=== PATIENT | female | born 1955 | race Caucasian/White ===

== ENCOUNTER → 2017-08-15 | Outpatient (CLI) | payer BC, MEDICARE ==
--- NOTE | 2017-08-15 11:30 | USB ---
Reason for exam: clinical finding. History: Patient has history of endometrial cancer at age 62 and has history of breast cancer at age 55. Family history of breast cancer in cousin at age 36 and breast cancer in paternal aunt. Lumpectomy of the left breast. Indicated problem(s): skin thickening or retraction and lump or thickening in the left breast. Physical Findings: Nurse did not find any significant physical abnormalities on exam. US Breast LT Left breast ultrasound includes all four quadrants, the retroareolar region and axilla. Finding demonstrates skin thickening, shadowing from scar. Significant exam limitations due to attenuating tissue. These results were verbally communicated with the patient and result sheet given to the patient on 08/15/17. ASSESSMENT: Probably benign, BI-RAD 3 RECOMMENDATION: Clinical management of the left breast. Manage patient on a clinical basis.
== END | disposition home or self-care (01) ==
LOC: RADUSWWP 10:03
PROVIDERS: ATTEND Obstetrics & Gynecology Obstetrics
DX: Z08 Encounter for follow-up examination after completed treatment for malignant neoplasm (principal); Z85.3 Personal history of malignant neoplasm of breast

== ENCOUNTER → 2018-05-20 | Outpatient (CLI) | payer MEDICARE ==
--- NOTE | 2018-05-22 10:27 | MM ---
Reason for exam: screening (asymptomatic). Last mammogram was performed 1 year and 2 months ago. History: Patient has history of endometrial cancer at age 62 and has history of breast cancer at age 55. Family history of breast cancer in cousin at age 36 and breast cancer in paternal aunt. Lumpectomy of the left breast. Physical Findings: A clinical breast exam by your physician is recommended on an annual basis and results should be correlated with mammographic findings. MG 3D Screening Mammo W/Cad Bilateral CC and MLO view(s) were taken. Prior study comparison: March 13, 2017, mammogram, performed at [facility]. March 06, 2017, mammogram, performed at [facility]. The breast tissue is heterogeneously dense. This may lower the sensitivity of mammography. Post surgical changes in the left breast, stable. No significant changes when compared with prior studies. ASSESSMENT: Benign, BI-RAD 2 RECOMMENDATION: Routine screening mammogram of both breasts.
== END | disposition home or self-care (01) ==
LOC: RADMAMWWP 07:25
PROVIDERS: ATTEND Internal Medicine
DX: Z12.31 Encounter for screening mammogram for malignant neoplasm of breast (principal); Z29.9 Encounter for prophylactic measures, unspecified
CPT/HCPCS: 77063; 77067

== ENCOUNTER → 2018-09-30 | Outpatient (CLI) | payer MEDICARE ==
--- NOTE | 2018-09-30 20:03 | PN ---
PROGRESS NOTE This is a 63-year-old female patient who is being seen in followup regarding her obstructive sleep apnea. The patient is coming in for an annual check. She has gained weight on the order of 10 pounds. She used to weigh 237 and currently she is up to 247. She is using the ResMed S9 CPAP unit which is set at a pressure of 12 cm of water. She remains extremely compliant, and her CPAP use for more than 4 hours is 100%. Her average CPAP use is around 9.1 hours per night. Her leak is 40 L/minute and she is using the AirFit P10 nose pillow. She has no specific complaints. She is waking up alert and refreshed during the day. Her CPAP machine is functional and treatment is successful despite her 10-pound weight gain. No snoring while on CPAP therapy. No other new-onset medical problems or comorbidities. Her [place] score is zero. PHYSICAL EXAMINATION: BP 134/66, pulse 80, respirations 16, temperature 98.0. Weight is 247. Height is 5 feet 9 inches and BMI 36.4, saturation 96% on room air. GENERAL APPEARANCE: Calm, comfortable. Head is atraumatic, normocephalic. NECK: Supple. No JVD. No goiter or neck masses. Mallampati class IV. LUNGS: Clear to auscultation. HEART: Heart sounds are regular rate and rhythm. Normal S1, S2. No S3, S4. No murmurs. ABDOMEN: Soft, nontender. No organomegaly. EXTREMITIES: No edema. No cyanosis or clubbing. Neurologically, alert and oriented x3. There is no focal neurological deficit. IMPRESSION: 1. Obstructive sleep apnea, moderate to severe in nature, with an apnea/hypopnea index of 22.4, currently on CPAP pressure of 12 cm of water, and treatment continues to be successful. 2. Hypersomnia, recovered. 3. Endometrial cancer. 4. Breast cancer with previous lumpectomy and lymph node dissection. 5. Obesity with interval 10-pound weight gain. 6. Hypertension. 7. Atrial fibrillation. Currently rhythm is sinus. 8. Chemotherapy-induced cardiomyopathy, recovered, and the patient has no signs of heart failure for now. 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 10.Gastroesophageal reflux disease. PLAN: 1. Encourage weight loss. 2. Continue using the same mask. 3. Continue utilizing the same CPAP pressure. 4. Treatment is successful. See me back in a year's time, earlier if needed. MMODL / IJN: [id number] /
== END ==
LOC: SLEEP 10:08
PROVIDERS: ATTEND Internal Medicine Critical Care Medicine
DX: G47.33 Obstructive sleep apnea (adult) (pediatric) (principal); C54.1 Malignant neoplasm of endometrium; C50.919 Malignant neoplasm of unspecified site of unspecified female breast; E66.9 Obesity, unspecified; I10 Essential (primary) hypertension; I48.91 Unspecified atrial fibrillation; G51.0 Bell's palsy; K21.9 Gastro-esophageal reflux disease without esophagitis; Z99.89 Dependence on other enabling machines and devices; Z90.89 Acquired absence of other organs; Z68.36 Body mass index [BMI] 36.0-36.9, adult